=== PATIENT | female | born 1975 | race Caucasian/White ===

== ENCOUNTER 2020-08-13 22:43 | Emergency (ER) | payer BC, OTHER ==
[~2020-08-13] VITALS: Ht 157.5 cm; Wt 55.3 kg
[2020-08-13 23:00] VITALS: BP_SYST 120
== END 2020-08-13 23:40 | disposition home or self-care (01) ==
LOC: SED 22:43
DX: R06.02 Shortness of breath (principal); J45.909 Unspecified asthma, uncomplicated; Z88.6 Allergy status to analgesic agent
CPT/HCPCS: 71045; 99283

== ENCOUNTER 2021-09-17 13:45 | Emergency (ER) | payer BC ==
[~2021-09-17] VITALS: Ht 157.5 cm; Wt 56.7 kg
[2021-09-17 13:50] VITALS: BP_SYST 149
--- NOTE | 2021-09-17 13:50 | NUR ---
Pt. bib with concerns of nausea and just not feeling right "pt. states feels off" 2 days ago was hit in the head by a falling object and had a little disorientation and nausea, went to urgent care and was dx. with a concussion, had been resting for 2 days and today was more active and became nauseous and funny feeling.
--- NOTE | 2021-09-17 13:50 | NUR ---
Patient to ER bed 3 to gown for evaluation. Side rails up. Assumed care.
--- NOTE | 2021-09-17 14:03 | NUR ---
ER at bedside examining patient.
[2021-09-17] MEDS ORDERED: ONDANSETRON 4 MG ODT TAB PO ONE (14:15)
[2021-09-17] MEDS ORDERED: LORazepam 1 MG TABLET PO ONE (14:15)
[2021-09-17] MEDS ORDERED: ONDA-8 TL (14:46)
[2021-09-17] MEDS ORDERED: ACET-2634 PO (14:46)
--- NOTE | 2021-09-17 15:20 | NUR ---
Patient given written and verbal discharge instructions and verbalizes understanding. ER discussed with patient the results and treatment provided. Patient in stable condition. ID arm band removed. Rx of tylenol and zofran given. Patient educated on pain management and to follow up with PMD. Pain Scale 0. Opportunity for questions provided and answered. Medication side effect fact sheet provided.
[2021-09-17 15:32] VITALS: BP_SYST 149
== END 2021-09-17 15:20 | disposition home or self-care (01) ==
LOC: SED 13:45
DX: S06.0X0A Concussion without loss of consciousness, initial encounter (principal); J45.909 Unspecified asthma, uncomplicated; Z79.899 Other long term (current) drug therapy; Z88.6 Allergy status to analgesic agent; W22.8XXA Striking against or struck by other objects, initial encounter; Y93.75 Activity, martial arts; Y92.89 Other specified places as the place of occurrence of the external cause; Y99.8 Other external cause status
CPT/HCPCS: 70450; 76376; 99284; Q0162